=== PATIENT | male | born 1930 | race Caucasian/White ===

== ENCOUNTER 2019-08-19 14:41 | Inpatient (IN) | payer MEDICARE, BC ==
[~2019-08-19] VITALS: Ht 180.3 cm; Wt 74.6 kg
--- NOTE | 2019-08-19 16:00 | NUR ---
Received report from Crescencio at [facility]. Patient would be arriving via private car. Patient arrived to [address] and this nurse went to ER to transfer patient via wheelchair to Room 334 in [facility]. Patient had some bloody drainage that was observed to the front of his white t-shirt. When patient left [facility] they had removed his bandage to his abdominal incision. Patient had his shirt changed and incision was covered with an air strip. Patient was also having some rubbing on his lower madelin from his elastic from his pants. The air strip provided more comfort. Patient's family was by his side and all were educated on the daily routines at [facility]. Patient any family denied any questions. Patient was complaining of some abdominal pain and was given prn Tylenol. He reported pain of 3-4/10 to his abdomen and right leg. He has continuous pain to right leg of pin and needles and has difficulty with right leg movement. Patient takes pills whole with water and is able to eat independently. He is continent of bowel and bladder. He was a CGA with walking to the bathroom using gait belt and walker.
[2019-08-19 16:07] VITALS: BP 131/59; PULSE 83; TEMP 97.8
[2019-08-19] MEDS ORDERED: TYLENOL 500MG500 MG PO (16:12)
[2019-08-19] MEDS ORDERED: ZYRTEC 10MG10 MG PO (16:13)
[2019-08-19] MEDS ORDERED: CATAPRES 0.1MG0.1 MG PO (16:14)
[2019-08-19] MEDS ORDERED: FERROUS SU325 MG/TAB PO (16:15)
[2019-08-19] MEDS ORDERED: HCTZ 25MG TAB25 MG PO (16:15)
[2019-08-19] MEDS ORDERED: FLOMAX 0.40.4 MG/CAP PO (16:16)
[2019-08-19] MEDS ORDERED: MOBIC15 MG PO (16:16)
[2019-08-19] MEDS ORDERED: ROXICODONE 55 MG/TAB PO ×2 (16:17→16:18)
--- NOTE | 2019-08-19 19:30 | NUR ---
PATIENT SITTING UP IN RECLINER DURING CHANGE OF SHIFT REPORT FROM DAY SHIFT NURSE. CHAIR ALARM ON.
[2019-08-19 21:21] VITALS: BP 131/57; PULSE 77
--- NOTE | 2019-08-19 22:30 | NUR ---
OBSERVED PATIENT BECOMING FATIGUED AFTER AMB TO AND FROM BATHROOM, CURRENTLY STANDING AT SINK, BRUSHING TEETH. OBSERVED PATIENT WITH BREATHING SLIGHT LABORED, DENIED SOB OR GASPING FOR BREATHE BUT REPORTING THAT HE WAS TIRED AFTER ACTIVITY/GETTING READY FOR BED TIME.
[2019-08-20] VITALS (144 sets, daily range): BP systolic 107–163; BP diastolic 58–105; PULSE 59–120; TEMP 97.4–98.7; O2SAT 93–97
--- NOTE | 2019-08-20 04:04 | NUR ---
RESTING WITH EYES CLOSED, BREATHING NONLABORED AND EVEN, BED ALARM ON. DOES NOT AWAKEN WHEN DOOR TO ROOM OPENS.
--- NOTE | 2019-08-20 07:50 | NUR ---
PATIENT UP IN CHAIR DURING CHANGE OF SHIFT REPORT GIVEN TO DAY SHIFT NURSE. CHAIR ALARM ON.
--- NOTE | 2019-08-20 10:02 | NUR ---
Daughter Zuleyma visiting while pt was with PT.
--- NOTE | 2019-08-20 13:25 | NUR ---
Therapist called to report pt having pain 6/10 in RLQ during session, see vitals, pain level decreased by the time nurse arrived to assess vitals, enc pt to report worsening or cont. of symptoms.
--- NOTE | 2019-08-20 14:16 | NUR ---
Left Dr. Andrade a voicemail about pt's continued abd pain/gas-like.
--- NOTE | 2019-08-20 15:03 | NUR ---
See physician notification. Pt cont to have abd pain during last therapy session in chair with ST. Pt chilling, shivering a lot, groaning, hi resp rate, placed on O2@1LPNC for comfort, given warm blankets. Lungs all audible with air flow, coarse.
--- NOTE | 2019-08-20 15:47 | NUR ---
Called daughter Zuleyma for phone consent for PICC with [facility]. She states pt has a port, [facility] is looking into it.
[2019-08-20 15:53] LABS: MEAN CELL VOLUME 97 fl (80.0-100.0); MEAN CORPUSCULAR HGB CONC 33 g/dl (33.0-37.0); MEAN PLATELET VOLUME 10.9 fl (7.4-10.4); PLATELET COUNT 300 K/mm3 (130-400); RED BLOOD COUNT 3.02 M/mm3 (4.20-5.60); REDCELL DISTRIBUTION WIDTH-CV 12.9 % (11.5-14.5)
[2019-08-20 15:55] LABS: HEMATOCRIT 29.2 % (42.0-52.0); HEMOGLOBIN 9.7 g/dl (13.5-18.0); MEAN CORPUSCULAR HEMOGLOBIN 32 pg (27.0-31.0)
--- NOTE | 2019-08-20 16:00 | NUR ---
Contacted patient's daugher and she reported patient has a "power" injectable port. Implanted port right upper chest accesssed without difficulty. good blood return obtained. lab drawn. port flushed with 20ml normal saline.
[2019-08-20 16:05] LABS: ALBUMIN 3.9 gm/dL (3.5-5.0); BILIRUBIN,TOTAL 1.9 mg/dL (0.0-1.0); CREATININE, serum 1.03 (0.66-1.25); POTASSIUM 3.4 mmol/L (3.4-5.0); TOTAL PROTEIN 6.9 gm/dL (6.4-8.2)
--- NOTE | 2019-08-20 16:11 | NUR ---
SW met with the patient to complete initial intake, as the patient is new to [facility]. The patient lives alone in [place]. His daughter, Roz (ph#[phone]), lives a couple houses up from him and his son, Isaias (ph#[phone]), lives ten miles away from him. He reports independence with ADLs and has a cane, walker, and wheelchair. The patient's PCP is Dr. Carson Kelley and he receives his medications at [facility]. He reports no difficulties obtaining his meds. The patient does not have advanced directives in EMR, but he states that he does have them completed and that [facility] should have a copy of them. SW contacted medical records at [facility] and requested a copy. He states that he believes he designated his son, Isaias, as his DPOA-HC. LUCIAN contacted and confirmed the above information with the patient's son, Isaias. SW to continue to follow to ensure a safe discharge.
[2019-08-20 16:20] LABS: BAND 5 % (0-10); EOSINOPHIL 1 % (0-4); LYMPHOCYTE 8 % (20.0-51.0); METAMYELOCYTE 1 % (0-0); NEUTROPHILS 85 % (42.0-75.2); PLATELET ESTIMATE NORMAL (NORMAL); STOMATOCYTE 2+
[2019-08-20 16:35] LABS: C-REACTIVE PROTEIN 15.8 mg/dL (0.0-0.9)
[2019-08-20 16:36] LABS: INR 1.2 (0.8-3.0)
--- NOTE | 2019-08-20 16:54 | NUR ---
Nurse took pt to CT in wheelchair and returned pt to bed upon which he received EKG, bed alarm on, call lt in reach, yellow gown and grippers and own underwear and yellow fall wristband in place. NPO. Lam HAs in place. Pt has calmed, but distant
--- NOTE | 2019-08-20 17:13 | NUR ---
Notified Zuleyma, pt's daughter that pt is septic, receiving sepsis protocol, IV antibiotics, and bolus fluids. RT placed pt on 2L O2 pNC
--- NOTE | 2019-08-20 17:58 | NUR ---
Daughter took pt's wallet home this morning.
--- NOTE | 2019-08-20 18:24 | NUR ---
Pt taken to [facility] via bed, daughter Zuleyma followed, settled in to room with [facility] nurse Evelyn.
--- NOTE | 2019-08-20 19:30 | NUR ---
Faxed Face sheet, DPOA, EKG from 08/19/19 x2, CT from today, RN & AIV notes, Physician notes, Admission B, nurse assessment this morning, nutrition/PT/OT/ST reports, and discharge summary Attn: Yaya at [facility]. Received "OK" fax receipt.
== END 2019-08-20 18:20 | disposition short-term general hospital (02) | DRG 947 ==
LOC: IMCU 08-20 18:15
PROVIDERS: ADMIT Internal Medicine
DX: R53.81 Other malaise (principal); A41.9 Sepsis, unspecified organism; R65.20 Severe sepsis without septic shock; C78.6 Secondary malignant neoplasm of retroperitoneum and peritoneum; I10 Essential (primary) hypertension; M54.9 Dorsalgia, unspecified; Z79.1 Long term (current) use of non-steroidal anti-inflammatories (NSAID); Z79.891 Long term (current) use of opiate analgesic; Z88.6 Allergy status to analgesic agent; Z85.038 Personal history of other malignant neoplasm of large intestine
CPT/HCPCS: 99222-AI; 99239; J1644; J2543; J7030; Q9967